=== PATIENT | male | born 1990 | race Two or more races ===

== ENCOUNTER 2017-10-28 17:05 | Emergency (ER) | payer OTHER ==
[2017-10-28] MEDS ORDERED: cephALEXin 250 MG CAPSULE PO STA (17:48)
[2017-10-28] MEDS ORDERED: SULFAMETH/TRIMETH DS 800/160 MG TABLET PO STA (17:48)
--- NOTE | 2017-10-28 17:50 | ED Physician Documentation ---
History of Present Illness - Stated complaint Stated Complaint: FINGER ABCESS - Chief complaint Chief Complaint: General - History obtained from History obtained from: Patient, Family - History of Present Illness Timing: Yesterday Pain level max: 3 Pain level now: 3 - Additonal information Additional information: Patient is a 27-year-old male who noticed a small pustule to the lateral aspect of the left index finger, proximal phalanx proximally 2 days ago, his squeezed it and it drained, however now the fingers turning red and swelling. Came here for evaluation. Nothing makes it better. It is worse with palpation and movement. Patient is right-handed Review of Systems Constitutional: denies: Fever Neurologic: denies: Focal weakness, Numbness PD PAST MEDICAL HISTORY - Past Medical History Past Medical History: No - Past Surgical History Past Surgical History: No - Present Medications Home Medications: Ambulatory Orders Medication Instructions Recorded Confirmed Cephalexin [Keflex] 500 mg PO Q6H #28 capsule 10/28/17 Sulfamethox/Trimeth 800/160 1 each PO BID #14 tablet 10/28/17 [Bactrim Ds 800/160] - Allergies Allergies/Adverse Reactions: Allergies Allergy/AdvReac Type Severity Reaction Status Date / Time hydrocodone Allergy Rash Verified 10/28/17 17:16 - Social History Does the pt smoke?: No Smoking Status: Never smoker Does the pt drink ETOH?: No Does the pt have substance abuse?: No - POLST Patient has POLST: No PD ED PE NORMAL - Vitals Vital signs reviewed: Yes - General General: Alert and oriented X 3, No acute distress - Derm Derm: Warm and dry - Extremities Extremities: Other (Left hand - Index finger is swollen and erythematous to this on the lateral aspect of the proximal phalanx. No pustule. No abscess. Is approximately 1 x 2 cm area of erythema. No tenderness along the tendon sheath. No tenosynovitis. No tenderness along the palmar aspect of the hand. Neurovascularly intact) - Neuro Neuro: Alert and oriented X 3 - Psych Psych: Normal mood, Normal affect Results - Vitals Vitals: Vital Signs - 24 hr 10/28/17 10/28/17 17:17 18:07 Temperature 36.6 C Heart Rate 87 74 Respiratory 18 14 Rate Blood Pressure 134/66 H 132/82 H O2 Saturation 99 99 Oxygen O2 Source Room air PD MEDICAL DECISION MAKING - ED course Complexity details: considered differential, d/w patient ED course: Patient is a 27-year-old male with left index finger cellulitis. Will place on antibiotics and have him follow-up closely with his doctor for repeat evaluation. No drainage needed at this time. No evidence of deep space infection in the hand. No streaking to suggest lymphangitic spread. No fevers. No evidence of necrotizing fasciitis. Patient counseled regarding signs and symptoms for which I believe and urgent re-evaluation would be necessary. Patient with good understanding of and agreement to plan and is comfortable going home at this time This document was made in part using voice recognition software. While efforts are made to proofread this document, sound alike and grammatical errors may occur. Departure - Departure Disposition: 01 Home, Self Care Clinical Impression: Cellulitis, finger Qualifiers: Laterality: left Qualified Code(s): L03.012 - Cellulitis of left finger Condition: Good Instructions: ED Infec Skin Cellulitis Follow-Up: your,doctor in 2-3 days for wound check [Other] Prescriptions: Cephalexin [Keflex] 500 mg PO Q6H #28 capsule Sulfamethox/Trimeth 800/160 [Bactrim Ds 800/160] 1 each PO BID #14 tablet Comments: Return if you worsen. Take all antibiotics until gone. Follow up with your doctor in 2-3 days for a recheck Discharge Date/Time: 10/28/17 18:05
[2017-10-28 18:07] VITALS: BP 132/82
== END 2017-10-28 18:05 | disposition home or self-care (01) ==
LOC: ED 17:05
DX: L03.012 Cellulitis of left finger (principal)
CPT/HCPCS: 99283; A9270